=== PATIENT | female | born 1965 | race Caucasian/White ===

== ENCOUNTER 2022-02-20 14:34 | Inpatient (IN) ==
[2022-02-20] MEDS ORDERED: Ringers Solution, Lactated 500 ML IVC ONE (15:08)
[2022-02-20] MEDS ORDERED: Ondansetron 4 MG/2 ML VIAL IVP PRN (15:11)
[2022-02-20] MEDS ORDERED: Iopamidol - 370 500 ML MLS IVP ONE (15:13)
[2022-02-20] MEDS ORDERED: *HR* HYDROcodone/Acet 5/325 mg TABLET PO PRN (15:14)
[2022-02-20] MEDS ORDERED: Ringers Solution, Lactated 1,000 ML ONE (16:23)
[2022-02-20 16:40] LABS: Hematocrit 40.3 % (35.3-44.9); Hemoglobin 13.6 g/dL (11.5-15.4); Mean Corpuscular HGB Conc 33.7 g/dL (31.6-35.5); Mean Corpuscular Hemoglobin 32.3 pg (28.0-33.3); Mean Corpuscular Volume 95.7 fL (83.0-100.0); Platelet Count 233 K/mcL (140-400); Red Blood Count 4.21 M/mcL (3.82-4.97); Red Cell Distribution Width 14.3 % (11.5-14.5)
[2022-02-20 17:00] LABS: BUN/Creatinine Ratio 21 (6-26); Blood Urea Nitrogen 16 mg/dL (6-20); Calcium 9.6 mg/dL (8.6-10.3); Carbon Dioxide 23 mEq/L (23-29); Chloride 101 mEq/L (98-107); Glucose 178 mg/dL (70-105); Monocytes # 0.2 K/mcL (0.0-1.3); Neutrophils # 7.8 K/mcL (1.6-8.9); Osmolality,Calculated 284 (280-300); Sodium 134 mEq/L (136-145); eGFR For African Americans > 60 (> 60); eGFR For Non-African Americans > 60 (> 60)
[2022-02-20] MEDS: modafiniL 100 MG TABLET PO SCH (20:01)
[2022-02-20] MEDS: Ketorolac 30 MG/ML VIAL IVP SCH (20:01)
[2022-02-20] MEDS ORDERED: D5% in Water 1,000 ML IVC PRN (21:09)
[2022-02-20] MEDS ORDERED: Dextrose Gel 15 GM/37.5 ML TUBE PO PRN ×2 (21:09)
[2022-02-20] MEDS ORDERED: *HR* Dextrose 50 % in Water (Syg) 50 ML SYRINGE IVP PRN (21:09)
[2022-02-20] MEDS ORDERED: Methyl Salicylate/Menthol 85 APPL/85 GM TUBE TP PRN (21:37)
[2022-02-20] MEDS ORDERED: Piperacillin/Tazobactam 3.375 GM in 0.9 % Sodium Chloride Mini Bag 100 ML IVPB SCH (22:00)
[2022-02-20] MEDS: Insulin LISPRO 300 UNITS/3 ML VIAL SUBQ SCH (22:42)
[2022-02-20] MEDS ORDERED: Ringers Solution, Lactated 0 ML ONE (22:47)
[2022-02-21] MEDS: Ketorolac 30 MG/ML VIAL IVP SCH ×3 (02:40→20:57)
[2022-02-21] MEDS: *HR* HYDROcodone/Acet 5/325 mg TABLET PO PRN ×3 (03:15→17:55)
[2022-02-21 04:54] LABS: Hematocrit 34.8 % (35.3-44.9); Mean Corpuscular HGB Conc 33.6 g/dL (31.6-35.5); Mean Corpuscular Hemoglobin 31.9 pg (28.0-33.3); Mean Corpuscular Volume 94.8 fL (83.0-100.0); Mean Platelet Volume 10.1 fL (9.4-12.4); Monocytes # 0.4 K/mcL (0.0-1.3); Platelet Count 204 K/mcL (140-400); Red Blood Count 3.67 M/mcL (3.82-4.97); Red Cell Distribution Width 14.1 % (11.5-14.5); White Blood Count 10.2 K/mcL (4.3-11.1)
[2022-02-21 05:24] LABS: Hemoglobin 11.7 g/dL (11.5-15.4)
[2022-02-21 06:20] LABS: Neutrophils # 8.8 K/mcL (1.6-8.9); Platelet Estimate Normal (Normal)
[2022-02-21] MEDS ORDERED: Simethicone 80 MG TAB.CHEW PO PRN (07:22)
[2022-02-21] MEDS: modafiniL 100 MG TABLET PO SCH ×2 (07:38→20:58)
[2022-02-21] MEDS: Loratadine 10 MG TABLET PO SCH (07:49)
[2022-02-21] MEDS: lisinopriL 20 MG TABLET PO SCH (07:49)
[2022-02-21] MEDS: amLODIPine 5 MG TABLET PO SCH (07:49)
[2022-02-21] MEDS: Metoprolol XL (24 HR) Succ 25 MG TAB.ER.24H PO SCH (07:50)
[2022-02-21] MEDS: Aspirin Enteric Coated 81 MG Tablet PO SCH (07:50)
[2022-02-21] MEDS: BuPROPion XL (24 HR) 150 MG TABLET PO SCH (07:50)
[2022-02-21] MEDS: hydroCHLOROthiazide 25 MG TABLET PO SCH (07:50)
[2022-02-21] MEDS: Piperacillin/Tazobactam 3.375 GM in 0.9 % Sodium Chloride Mini Bag 100 ML IVPB SCH ×2 (07:50→17:55)
[2022-02-21] MEDS: Insulin LISPRO 300 UNITS/3 ML VIAL SUBQ SCH ×4 (08:04→21:02)
[2022-02-21] MEDS: *HR* HYDROmorphone (PF) 1 MG/ML SYRINGE IVP PRN ×3 (08:55→21:49)
[2022-02-21] MEDS ORDERED: NON-FORMULARY MEDICATION 1 EACH EACH (Ipratropium Bromide 15 ML Spray) NS SCH (09:00)
[2022-02-21] MEDS: Tiotropium 10 INH DOSE IH SCH (13:24)
[2022-02-21] MEDS: Budesonide/Formoterol 160/4.5 1 PUFF INH IH SCH ×2 (13:24→20:59)
[2022-02-21] MEDS: Ringers Solution, Lactated 1,000 ML IVC SCH (20:54)
[2022-02-22] MEDS: *HR* HYDROcodone/Acet 5/325 mg TABLET PO PRN ×2 (02:23→10:55)
[2022-02-22] MEDS: Ringers Solution, Lactated 1,000 ML IVC SCH (04:53)
[2022-02-22] MEDS: Ketorolac 30 MG/ML VIAL IVP SCH ×2 (04:53→20:07)
[2022-02-22 05:26] LABS: Basophils % 0.2 %; Eosinophils # 0.3 K/mcL (0.0-0.6); Eosinophils % 2.2 %; Hematocrit 36.3 % (35.3-44.9); Hemoglobin 12.3 g/dL (11.5-15.4); Immature Granulocytes % 1.1 % (0-4); Lymphocytes # 0.9 K/mcL (0.6-4.6); Lymphocytes % 7.4 %; Mean Corpuscular HGB Conc 33.9 g/dL (31.6-35.5); Mean Corpuscular Hemoglobin 31.9 pg (28.0-33.3); Mean Corpuscular Volume 94.3 fL (83.0-100.0); Mean Platelet Volume 10.3 fL (9.4-12.4); Monocytes # 0.5 K/mcL (0.0-1.3); Monocytes % 4.7 %; Neutrophils # 9.8 K/mcL (1.6-8.9); Platelet Count 238 K/mcL (140-400); Red Blood Count 3.85 M/mcL (3.82-4.97); Segmented Neutrophils % 84.4 %; White Blood Count 11.6 K/mcL (4.3-11.1)
[2022-02-22 05:43] LABS: BUN/Creatinine Ratio 25 (6-26); Blood Urea Nitrogen 17 mg/dL (6-20); Calcium 8.6 mg/dL (8.6-10.3); Carbon Dioxide 20 mEq/L (23-29); Chloride 100 mEq/L (98-107); Glucose 163 mg/dL (70-105); Osmolality,Calculated 279 (280-300); Potassium 3.6 mEq/L (3.5-5.1); Sodium 132 mEq/L (136-145); eGFR For African Americans > 60 (> 60); eGFR For Non-African Americans > 60 (> 60)
[2022-02-22] MEDS: Piperacillin/Tazobactam 3.375 GM in 0.9 % Sodium Chloride Mini Bag 100 ML IVPB SCH ×2 (05:50→14:50)
[2022-02-22] MEDS: Tiotropium 10 INH DOSE IH SCH (07:48)
[2022-02-22] MEDS: Budesonide/Formoterol 160/4.5 1 PUFF INH IH SCH (07:49)
[2022-02-22] MEDS: BuPROPion XL (24 HR) 150 MG TABLET PO SCH (08:16)
[2022-02-22] MEDS: amLODIPine 5 MG TABLET PO SCH (08:17)
[2022-02-22] MEDS: hydroCHLOROthiazide 25 MG TABLET PO SCH (08:18)
[2022-02-22] MEDS: modafiniL 100 MG TABLET PO SCH (08:18)
[2022-02-22] MEDS: Aspirin Enteric Coated 81 MG Tablet PO SCH (08:23)
[2022-02-22] MEDS: lisinopriL 20 MG TABLET PO SCH (08:24)
[2022-02-22] MEDS: Loratadine 10 MG TABLET PO SCH (08:24)
[2022-02-22] MEDS: Metoprolol XL (24 HR) Succ 25 MG TAB.ER.24H PO SCH (08:24)
[2022-02-22] MEDS ORDERED: 0.9 % Sodium Chloride 500 ML ONE (08:51)
[2022-02-22] MEDS ORDERED: *HR* FentaNYL (PF) 100 MCG/2 ML VIAL IVP ONE (08:55)
[2022-02-22] MEDS ORDERED: *HR* FentaNYL (PF) 100 MCG/2 ML VIAL ONE (12:35)
[2022-02-22] MEDS ORDERED: Lidocaine -MPF 2% 5 ML VIAL ONE ×2 (12:35→14:00)
[2022-02-22] MEDS ORDERED: *HR* Rocuronium Bromide 50 MG/5 ML VIAL ONE ×2 (12:35→14:55)
[2022-02-22] MEDS ORDERED: *HR* Succinylcholine 200 MG/10 ML VIAL IVP ONE (12:35)
[2022-02-22] MEDS ORDERED: *HR* Propofol 200 MG/20 ML VIAL IVP ONE (12:35)
[2022-02-22] MEDS ORDERED: Ondansetron 4 MG/2 ML VIAL ONE (12:35)
[2022-02-22] MEDS ORDERED: *HR* HYDROmorphone 2 MG TABLET PO PRN (13:07)
[2022-02-22] MEDS ORDERED: Ketorolac 30 MG/ML VIAL IVP PRN (13:07)
[2022-02-22] MEDS ORDERED: *HR* Labetalol 20 MG/4 ML SYRINGE IVP PRN (13:07)
[2022-02-22] MEDS ORDERED: Ondansetron 4 MG/2 ML VIAL IVP PRN (13:07)
[2022-02-22] MEDS ORDERED: *HR* OxyCODONE Immed Rel 5 MG TABLET PO PRN (13:07)
[2022-02-22] MEDS ORDERED: Acetaminophen IV 1,000 MG/100 ML BAG IVPB ONE (13:07)
[2022-02-22] MEDS ORDERED: Famotidine 20 MG/2 ML VIAL IVP ONE (13:07)
[2022-02-22] MEDS ORDERED: *HR* Magnesium Sulfate 1 GM/2 ML VIAL ONE (13:59)
[2022-02-22] MEDS ORDERED: Ketamine HCL *QUVA* 50mg (1mL) SYRINGE ONE (14:02)
[2022-02-22] MEDS ORDERED: Albumin Human 5% 12.5 GM/250 ML IV.SOLN ONE ×2 (16:01→16:04)
[2022-02-22] MEDS: *HR* HYDROmorphone (PF) 1 MG/ML SYRINGE IVP PRN ×3 (16:49→17:41)
[2022-02-22] MEDS ORDERED: *HR* HYDROmorphone (PF) 1 MG/ML SYRINGE IVP STA (17:08)
[2022-02-22] MEDS ORDERED: *HR* Midazolam HCl 2 MG/2 ML VIAL IVP PRN (17:10)
[2022-02-22] MEDS ORDERED: D5% in Water 1,000 ML IVC PRN (18:24)
[2022-02-22] MEDS ORDERED: Dextrose Gel 15 GM/37.5 ML TUBE PO PRN ×2 (18:24)
[2022-02-22] MEDS ORDERED: *HR* Dextrose 50 % in Water (Syg) 50 ML SYRINGE IVP PRN (18:24)
[2022-02-22] MEDS: *HR* Metoprolol 5 MG/5 ML VIAL IVP PRN (20:03)
[2022-02-22] MEDS: Acetaminophen IV 1,000 MG/100 ML BAG IVPB SCH (20:04)
[2022-02-22] MEDS: Fluconazole 400 MG/200 ML 400 MG/200 ML BAG IVPB SCH (20:05)
[2022-02-22] MEDS: 0.9 % Sodium Chloride 1,000 ML IVC SCH (20:05)
[2022-02-22 22:10] LABS: BUN/Creatinine Ratio 21 (6-26); Blood Urea Nitrogen 15 mg/dL (6-20); Calcium 7.8 mg/dL (8.6-10.3); Carbon Dioxide 13 mEq/L (23-29); Chloride 104 mEq/L (98-107); Glucose 200 mg/dL (70-105); Magnesium 2.4 mg/dL (1.6-2.6); Osmolality,Calculated 278 (280-300); Potassium 4.2 mEq/L (3.5-5.1); Sodium 131 mEq/L (136-145); eGFR For African Americans > 60 (> 60); eGFR For Non-African Americans > 60 (> 60)
[2022-02-22] MEDS ORDERED: 0.9 % Sodium Chloride 250 ML ONE (22:13)
[2022-02-22] MEDS: *HR* HYDROmorphone PCA *PREMADE* 20 MG/1MG/ML (20mL) PCA VIAL IVC PRN (22:17)
[2022-02-22 23:14] LABS: Basophils % 0.3 %; Eosinophils % 0.1 %; Hematocrit 34.3 % (35.3-44.9); Hemoglobin 11.3 g/dL (11.5-15.4); Lymphocytes # 0.6 K/mcL (0.6-4.6); Mean Corpuscular HGB Conc 32.9 g/dL (31.6-35.5); Mean Corpuscular Hemoglobin 31.7 pg (28.0-33.3); Mean Corpuscular Volume 96.3 fL (83.0-100.0); Mean Platelet Volume 10.3 fL (9.4-12.4); Monocytes # 0.6 K/mcL (0.0-1.3); Monocytes % 5.3 %; Platelet Count 239 K/mcL (140-400); Red Blood Count 3.56 M/mcL (3.82-4.97); Red Cell Distribution Width 14.2 % (11.5-14.5); Segmented Neutrophils % 87.3 %; White Blood Count 10.5 K/mcL (4.3-11.1)
[2022-02-22 23:17] LABS: Neutrophils # 9.2 K/mcL (1.6-8.9)
[2022-02-22] MEDS: Insulin LISPRO 300 UNITS/3 ML VIAL SUBQ SCH (23:42)
[2022-02-23 00:02] LABS: Platelet Estimate Normal (Normal)
[2022-02-23] MEDS: Insulin LISPRO 300 UNITS/3 ML VIAL SUBQ SCH ×5 (00:19→22:29)
[2022-02-23] MEDS: Piperacillin/Tazobactam 3.375 GM in 0.9 % Sodium Chloride Mini Bag 100 ML IVPB SCH ×3 (00:19→17:08)
[2022-02-23] MEDS: Acetaminophen IV 1,000 MG/100 ML BAG IVPB SCH ×4 (00:19→20:18)
[2022-02-23 05:01] LABS: BUN/Creatinine Ratio 28 (6-26); Blood Urea Nitrogen 18 mg/dL (6-20); Calcium 7.7 mg/dL (8.6-10.3); Carbon Dioxide 18 mEq/L (23-29); Chloride 106 mEq/L (98-107); Glucose 190 mg/dL (70-105); Magnesium 2.3 mg/dL (1.6-2.6); Osmolality,Calculated 287 (280-300); Phosphorous 2.7 mg/dL (2.7-4.5); Potassium 3.8 mEq/L (3.5-5.1); Sodium 135 mEq/L (136-145); eGFR For African Americans > 60 (> 60); eGFR For Non-African Americans > 60 (> 60)
[2022-02-23 05:21] LABS: Basophils % 0.3 %; Eosinophils % 0.1 %; Hematocrit 32.1 % (35.3-44.9); Hemoglobin 10.7 g/dL (11.5-15.4); Immature Granulocytes % 1.2 % (0-4); Lymphocytes # 0.6 K/mcL (0.6-4.6); Lymphocytes % 5.6 %; Mean Corpuscular HGB Conc 33.3 g/dL (31.6-35.5); Mean Corpuscular Volume 96.1 fL (83.0-100.0); Monocytes # 0.6 K/mcL (0.0-1.3); Monocytes % 5.3 %; Platelet Count 239 K/mcL (140-400); Red Blood Count 3.34 M/mcL (3.82-4.97); Red Cell Distribution Width 14.3 % (11.5-14.5); Segmented Neutrophils % 87.5 %; White Blood Count 10.8 K/mcL (4.3-11.1)
[2022-02-23 05:28] LABS: Neutrophils # 9.5 K/mcL (1.6-8.9)
[2022-02-23] MEDS ORDERED: Insulin LISPRO 300 UNITS/3 ML VIAL SUBQ SCH (07:30)
[2022-02-23] MEDS ORDERED: 0.9 % Sodium Chloride 1,000 ML ONE (11:15)
[2022-02-23] MEDS: 0.9 % Sodium Chloride 1,000 ML IVC SCH (11:41)
[2022-02-23] MEDS: Fluconazole 400 MG/200 ML 400 MG/200 ML BAG IVPB SCH (17:13)
[2022-02-24] MEDS: Acetaminophen IV 1,000 MG/100 ML BAG IVPB SCH ×4 (00:17→19:59)
[2022-02-24] MEDS: Piperacillin/Tazobactam 3.375 GM in 0.9 % Sodium Chloride Mini Bag 100 ML IVPB SCH ×3 (00:18→17:21)
[2022-02-24] MEDS: *HR* Metoprolol 5 MG/5 ML VIAL IVP PRN (04:35)
[2022-02-24] MEDS: Insulin LISPRO 300 UNITS/3 ML VIAL SUBQ SCH ×5 (07:28→23:50)
[2022-02-24 10:33] LABS: Basophils # 0.1 K/mcL (0.0-0.2); Basophils % 0.4 %; Eosinophils # 0.5 K/mcL (0.0-0.6); Eosinophils % 4.4 %; Hematocrit 32.2 % (35.3-44.9); Hemoglobin 10.6 g/dL (11.5-15.4); Immature Granulocytes % 4.4 % (0-4); Lymphocytes # 1.3 K/mcL (0.6-4.6); Lymphocytes % 10.9 %; Mean Corpuscular HGB Conc 32.9 g/dL (31.6-35.5); Mean Corpuscular Hemoglobin 31.7 pg (28.0-33.3); Mean Corpuscular Volume 96.4 fL (83.0-100.0); Mean Platelet Volume 10.5 fL (9.4-12.4); Monocytes # 0.9 K/mcL (0.0-1.3); Monocytes % 7.4 %; Neutrophils # 8.7 K/mcL (1.6-8.9); Platelet Count 258 K/mcL (140-400); Red Blood Count 3.34 M/mcL (3.82-4.97); Red Cell Distribution Width 14.8 % (11.5-14.5); Segmented Neutrophils % 72.5 %
[2022-02-24 10:53] LABS: BUN/Creatinine Ratio 42 (6-26); Blood Urea Nitrogen 22 mg/dL (6-20); Calcium 7.8 mg/dL (8.6-10.3); Carbon Dioxide 22 mEq/L (23-29); Chloride 107 mEq/L (98-107); Glucose 132 mg/dL (70-105); Magnesium 2.5 mg/dL (1.6-2.6); Osmolality,Calculated 291 (280-300); Phosphorous 2.4 mg/dL (2.7-4.5); Potassium 3.4 mEq/L (3.5-5.1); Sodium 138 mEq/L (136-145); eGFR For African Americans > 60 (> 60); eGFR For Non-African Americans > 60 (> 60)
[2022-02-24] MEDS ORDERED: Potassium Phosphate 44 MEQ in 0.9 % Sodium Chloride 250 ML IVPB ONE (13:43)
[2022-02-24] MEDS: D5% in 0.2% NACL w KCl 1,000 ML IVC SCH (14:35)
[2022-02-24] MEDS: Fluconazole 400 MG/200 ML 400 MG/200 ML BAG IVPB SCH (17:22)
[2022-02-24] MEDS: *HR* HYDROmorphone PCA *PREMADE* 20 MG/1MG/ML (20mL) PCA VIAL IVC PRN (19:25)
[2022-02-25] MEDS: *HR* Metoprolol 5 MG/5 ML VIAL IVP PRN (00:18)
[2022-02-25] MEDS: Piperacillin/Tazobactam 3.375 GM in 0.9 % Sodium Chloride Mini Bag 100 ML IVPB SCH ×3 (00:19→17:18)
[2022-02-25] MEDS: Insulin LISPRO 300 UNITS/3 ML VIAL SUBQ SCH ×5 (00:26→21:42)
[2022-02-25] MEDS ORDERED: Iopamidol - 370 500 ML MLS IVP ONE (03:50)
[2022-02-25 04:53] LABS: Basophils # 0.1 K/mcL (0.0-0.2); Basophils % 0.7 %; Eosinophils # 0.6 K/mcL (0.0-0.6); Eosinophils % 5.2 %; Hematocrit 32.1 % (35.3-44.9); Hemoglobin 10.5 g/dL (11.5-15.4); Immature Granulocytes % 6.5 % (0-4); Lymphocytes # 1.5 K/mcL (0.6-4.6); Lymphocytes % 13.1 %; Mean Corpuscular HGB Conc 32.7 g/dL (31.6-35.5); Mean Corpuscular Hemoglobin 31.6 pg (28.0-33.3); Mean Corpuscular Volume 96.7 fL (83.0-100.0); Monocytes # 0.6 K/mcL (0.0-1.3); Monocytes % 5.3 %; Platelet Count 291 K/mcL (140-400); Red Blood Count 3.32 M/mcL (3.82-4.97); Segmented Neutrophils % 69.2 %; White Blood Count 11.5 K/mcL (4.3-11.1)
[2022-02-25] MEDS ORDERED: Vancomycin 2,000 MG/520 ML IV.SOLN IVPB ONE (05:00)
[2022-02-25 05:03] LABS: BUN/Creatinine Ratio 36 (6-26); Blood Urea Nitrogen 16 mg/dL (6-20); Calcium 7.4 mg/dL (8.6-10.3); Carbon Dioxide 20 mEq/L (23-29); Chloride 106 mEq/L (98-107); Glucose 151 mg/dL (70-105); Osmolality,Calculated 284 (280-300); Potassium 3.6 mEq/L (3.5-5.1); Sodium 135 mEq/L (136-145); eGFR For African Americans > 60 (> 60); eGFR For Non-African Americans > 60 (> 60)
[2022-02-25] MEDS ORDERED: Acetaminophen IV 1,000 MG/100 ML BAG IVPB PRN (05:07)
[2022-02-25] MEDS ORDERED: Ringers Solution, Lactated 250 ML IVC ONE (05:15)
[2022-02-25] MEDS: D5% in 0.2% NACL w KCl 1,000 ML IVC SCH (10:14)
[2022-02-25] MEDS ORDERED: Lidocaine -MPF 1% 5 ML AMPUL INFILT ONE (10:16)
[2022-02-25] MEDS: Acetaminophen IV 1,000 MG/100 ML BAG IVPB SCH (10:24)
[2022-02-25] MEDS: 0.9 % Sodium Chloride 1,000 ML IVC SCH ×2 (10:47→19:41)
[2022-02-25 11:36] LABS: Bacteria,Urine Few per hpf (None-Few); Bilirubin,Urine Negative (Negative); Blood,Urine Small (Negative); Clarity,Urine Clear (Clear); Color,Urine Light-Yellow (Yellow); Glucose,Urine (UA) 200 mg/dL (Normal); Ketones,Urine >150 mg/dL (Negative); Leukocyte Esterase,Urine Negative (Negative); Mucus,Urine Few per lpf (None-Few); Nitrite,Urine Negative (Negative); Protein,Urine 30 mg/dL (Neg-Trace); RBC,Urine 15-30 per hpf (0-3); Specific Gravity,Urine > 1.030 (1.010-1.025); Squamous Epithelial Cell,Urine Few per hpf (None-Few); Uric Acid Crystals,Urine Present per hpf; Urobilinogen,Urine Normal (Normal)
[2022-02-25 11:43] LABS: Alanine Aminotransferase 15 Units/L (7-52); Albumin 2.8 g/dL (3.5-5.7); Alkaline Phosphatase 59 Units/L (34-104); Aspartate Amino Transferase 22 Units/L (13-39); Bilirubin,Direct 0.1 mg/dL (0.0-0.2); Bilirubin,Indirect 0.3 mg/dL (0.0-1.0); Bilirubin,Total 0.4 mg/dL (0.3-1.0); Globulin 2.8 g/dL (2.4-3.5); Magnesium 2.1 mg/dL (1.6-2.6); Total Protein 5.6 g/dL (6.4-8.9)
[2022-02-25 11:44] LABS: Phosphorous 2.5 mg/dL (2.7-4.5)
[2022-02-25 11:55] LABS: Thyroid Stimulating Hormone 5.766 mcIU/mL (0.340-5.600)
[2022-02-25] MEDS: Ketorolac 30 MG/ML VIAL IVP SCH ×2 (12:19→18:36)
[2022-02-25] MEDS ORDERED: D10% in Water 500 ML IVC PRN (12:42)
[2022-02-25] MEDS: *HR* HYDROmorphone PCA *PREMADE* 20 MG/1MG/ML (20mL) PCA VIAL IVC PRN (15:02)
[2022-02-25] MEDS ORDERED: Clinimix E 5%-15% SOLUTION 2,000 ML, Amino Acids 10% 0 ML with MVI, adult with vitami... IVC SCH (17:00)
[2022-02-25] MEDS: Vancomycin 1,250 MG/262.5 ML IV.SOLN IVPB SCH (17:18)
[2022-02-25] MEDS ORDERED: Calcium Gluconate 1gm/50mL 1 GM/50 ML BAG IVPB SCH (18:30)
[2022-02-25] MEDS: Fluconazole 400 MG/200 ML 400 MG/200 ML BAG IVPB SCH (18:46)
[2022-02-26] MEDS: Piperacillin/Tazobactam 3.375 GM in 0.9 % Sodium Chloride Mini Bag 100 ML IVPB SCH ×3 (00:19→19:29)
[2022-02-26] MEDS: Ketorolac 30 MG/ML VIAL IVP SCH ×5 (00:20→23:55)
[2022-02-26] MEDS: Insulin LISPRO 300 UNITS/3 ML VIAL SUBQ SCH ×5 (00:45→22:09)
[2022-02-26 05:04] LABS: Hematocrit 30.8 % (35.3-44.9); Hemoglobin 9.9 g/dL (11.5-15.4); Mean Corpuscular HGB Conc 32.1 g/dL (31.6-35.5); Mean Corpuscular Hemoglobin 31.2 pg (28.0-33.3); Mean Corpuscular Volume 97.2 fL (83.0-100.0); Mean Platelet Volume 10.1 fL (9.4-12.4); Platelet Count 317 K/mcL (140-400); Red Blood Count 3.17 M/mcL (3.82-4.97); Red Cell Distribution Width 14.9 % (11.5-14.5); White Blood Count 13.6 K/mcL (4.3-11.1)
[2022-02-26 05:25] LABS: Alanine Aminotransferase 14 Units/L (7-52); Albumin 2.7 g/dL (3.5-5.7); Alkaline Phosphatase 64 Units/L (34-104); Aspartate Amino Transferase 16 Units/L (13-39); BUN/Creatinine Ratio 33 (6-26); Bilirubin,Total 0.4 mg/dL (0.3-1.0); Blood Urea Nitrogen 16 mg/dL (6-20); Calcium 7.3 mg/dL (8.6-10.3); Carbon Dioxide 20 mEq/L (23-29); Chloride 108 mEq/L (98-107); Globulin 2.7 g/dL (2.4-3.5); Glucose 119 mg/dL (70-105); Magnesium 2.1 mg/dL (1.6-2.6); Osmolality,Calculated 288 (280-300); Phosphorous 2.3 mg/dL (2.7-4.5); Potassium 3.9 mEq/L (3.5-5.1); Sodium 138 mEq/L (136-145); Total Protein 5.4 g/dL (6.4-8.9); Triglycerides 149 mg/dL (< 150); eGFR For African Americans > 60 (> 60); eGFR For Non-African Americans > 60 (> 60)
[2022-02-26] MEDS: 0.9 % Sodium Chloride 1,000 ML IVC SCH ×2 (05:46→19:28)
[2022-02-26] MEDS: Vancomycin 1,250 MG/262.5 ML IV.SOLN IVPB SCH (05:47)
[2022-02-26] MEDS ORDERED: Calcium Gluconate 1gm/50mL 1 GM/50 ML BAG IVPB ONE (08:40)
[2022-02-26] MEDS: amLODIPine 5 MG TABLET PO SCH (12:35)
[2022-02-26] MEDS: Metoprolol XL (24 HR) Succ 25 MG TAB.ER.24H PO SCH (12:35)
[2022-02-26] MEDS: *HR* HYDROmorphone PCA *PREMADE* 20 MG/1MG/ML (20mL) PCA VIAL IVC PRN (12:45)
[2022-02-26] MEDS: Fluconazole 400 MG/200 ML 400 MG/200 ML BAG IVPB SCH (19:33)
[2022-02-26] MEDS ORDERED: Vancomycin 1,500 MG/265 ML IV.SOLN IVPB SCH (22:00)
[2022-02-26] MEDS: Ondansetron 4 MG/2 ML VIAL IVP PRN (22:05)
[2022-02-27] MEDS: Insulin LISPRO 300 UNITS/3 ML VIAL SUBQ SCH ×5 (00:56→19:53)
[2022-02-27] MEDS: Piperacillin/Tazobactam 3.375 GM in 0.9 % Sodium Chloride Mini Bag 100 ML IVPB SCH ×3 (03:33→19:52)
[2022-02-27 04:35] LABS: Hematocrit 28.3 % (35.3-44.9); Hemoglobin 9.2 g/dL (11.5-15.4); Mean Corpuscular HGB Conc 32.5 g/dL (31.6-35.5); Mean Corpuscular Hemoglobin 31.4 pg (28.0-33.3); Mean Corpuscular Volume 96.6 fL (83.0-100.0); Mean Platelet Volume 10.3 fL (9.4-12.4); Platelet Count 336 K/mcL (140-400); Red Blood Count 2.93 M/mcL (3.82-4.97); Red Cell Distribution Width 14.8 % (11.5-14.5); White Blood Count 14.5 K/mcL (4.3-11.1)
[2022-02-27 04:56] LABS: Neutrophils # 11.6 K/mcL (1.6-8.9); Platelet Estimate Normal (Normal)
[2022-02-27 05:03] LABS: BUN/Creatinine Ratio 31 (6-26); Blood Urea Nitrogen 8 mg/dL (6-20); Calcium 5.2 mg/dL (8.6-10.3); Carbon Dioxide 15 mEq/L (23-29); Chloride 117 mEq/L (98-107); Glucose 98 mg/dL (70-105); Osmolality,Calculated 286 (280-300); Potassium 2.7 mEq/L (3.5-5.1); Sodium 139 mEq/L (136-145)
[2022-02-27] MEDS: 0.9 % Sodium Chloride 1,000 ML IVC SCH ×2 (05:11→14:56)
[2022-02-27] MEDS: Calcium Gluconate 1gm/50mL 1 GM/50 ML BAG IVPB SCH ×2 (05:34→06:03)
[2022-02-27] MEDS: Ketorolac 30 MG/ML VIAL IVP SCH ×3 (06:02→18:45)
[2022-02-27] MEDS: amLODIPine 5 MG TABLET PO SCH (08:33)
[2022-02-27] MEDS: Metoprolol XL (24 HR) Succ 25 MG TAB.ER.24H PO SCH (08:33)
[2022-02-27 10:52] LABS: BUN/Creatinine Ratio 20 (6-26); Blood Urea Nitrogen 9 mg/dL (6-20); Calcium 7.6 mg/dL (8.6-10.3); Carbon Dioxide 21 mEq/L (23-29); Chloride 108 mEq/L (98-107); Glucose 113 mg/dL (70-105); Magnesium 1.8 mg/dL (1.6-2.6); Osmolality,Calculated 281 (280-300); Potassium 3.8 mEq/L (3.5-5.1); Sodium 136 mEq/L (136-145)
[2022-02-27] MEDS: Vancomycin 1,750 MG/517.5 ML IV.SOLN IVPB SCH ×2 (11:03→21:11)
[2022-02-27] MEDS: *HR* OxyCODONE Immed Rel 5 MG TABLET PO PRN ×3 (11:11→21:10)
[2022-02-27] MEDS ORDERED: Magnesium Sulfate 1 GM/102 ML PIGGYBACK IVPB ONE (14:04)
[2022-02-27] MEDS ORDERED: Calcium Gluconate 1gm/50mL 1 GM/50 ML BAG IVPB ONE (14:04)
[2022-02-27] MEDS: Fluconazole 400 MG/200 ML 400 MG/200 ML BAG IVPB SCH (18:46)
[2022-02-27] MEDS: *HR* Heparin 5,000 UNIT/ML VIAL SQ SCH (21:11)
[2022-02-28] MEDS: 0.9 % Sodium Chloride 1,000 ML IVC SCH ×2 (01:42→08:54)
[2022-02-28] MEDS: Ketorolac 30 MG/ML VIAL IVP SCH ×5 (01:43→23:09)
[2022-02-28] MEDS: Insulin LISPRO 300 UNITS/3 ML VIAL SUBQ SCH ×5 (01:46→21:11)
[2022-02-28] MEDS: *HR* OxyCODONE Immed Rel 5 MG TABLET PO PRN ×4 (01:46→17:10)
[2022-02-28] MEDS ORDERED: Albuterol 2.5 MG/3 ML NEBULIZER IH PRN (02:11)
[2022-02-28] MEDS: Piperacillin/Tazobactam 3.375 GM in 0.9 % Sodium Chloride Mini Bag 100 ML IVPB SCH ×3 (04:55→21:09)
[2022-02-28] MEDS: *HR* Heparin 5,000 UNIT/ML VIAL SQ SCH ×3 (06:01→21:09)
[2022-02-28] MEDS ORDERED: Iopamidol - 370 500 ML MLS IVP ONE (08:52)
[2022-02-28] MEDS: amLODIPine 5 MG TABLET PO SCH (08:54)
[2022-02-28] MEDS: lisinopriL 20 MG TABLET PO SCH (08:55)
[2022-02-28] MEDS ORDERED: Metoprolol XL (24 HR) Succ 25 MG TAB.ER.24H PO SCH (09:00)
[2022-02-28 09:36] LABS: Basophils % 0.3 %; Eosinophils # 0.2 K/mcL (0.0-0.6); Hematocrit 26.9 % (35.3-44.9); Hemoglobin 8.8 g/dL (11.5-15.4); Immature Granulocytes % 4.8 % (0-4); Lymphocytes # 1.3 K/mcL (0.6-4.6); Lymphocytes % 11.3 %; Mean Corpuscular HGB Conc 32.7 g/dL (31.6-35.5); Mean Corpuscular Hemoglobin 31.1 pg (28.0-33.3); Mean Corpuscular Volume 95.1 fL (83.0-100.0); Mean Platelet Volume 10.4 fL (9.4-12.4); Monocytes # 0.5 K/mcL (0.0-1.3); Monocytes % 4.2 %; Neutrophils # 9.1 K/mcL (1.6-8.9); Platelet Count 355 K/mcL (140-400); Red Blood Count 2.83 M/mcL (3.82-4.97); Red Cell Distribution Width 14.7 % (11.5-14.5); Segmented Neutrophils % 77.4 %; White Blood Count 11.8 K/mcL (4.3-11.1)
[2022-02-28 09:50] LABS: BUN/Creatinine Ratio 13 (6-26); Blood Urea Nitrogen 10 mg/dL (6-20); Calcium 7.4 mg/dL (8.6-10.3); Carbon Dioxide 21 mEq/L (23-29); Chloride 109 mEq/L (98-107); Glucose 129 mg/dL (70-105); Osmolality,Calculated 287 (280-300); Potassium 3.3 mEq/L (3.5-5.1); Sodium 138 mEq/L (136-145)
[2022-02-28] MEDS: Vancomycin 1,750 MG/517.5 ML IV.SOLN IVPB SCH ×2 (11:01→23:10)
[2022-02-28] MEDS: Budesonide/Formoterol 80/4.5 1 PUFF INH IH SCH ×2 (12:51→20:31)
[2022-02-28] MEDS: Tiotropium 10 INH DOSE IH SCH (12:51)
[2022-02-28] MEDS ORDERED: Morphine Sulfate 2 MG/ML SYRINGE IVP PRN (14:17)
[2022-02-28] MEDS: Fluconazole 400 MG/200 ML 400 MG/200 ML BAG IVPB SCH (17:11)
[2022-03-01] MEDS: *HR* OxyCODONE Immed Rel 5 MG TABLET PO PRN ×4 (00:22→21:21)
[2022-03-01] MEDS: *HR* Labetalol 20 MG/4 ML SYRINGE IVP PRN (00:22)
[2022-03-01] MEDS: Piperacillin/Tazobactam 3.375 GM in 0.9 % Sodium Chloride Mini Bag 100 ML IVPB SCH ×3 (04:26→19:43)
[2022-03-01 05:28] LABS: Basophils % 0.3 %; Eosinophils # 0.2 K/mcL (0.0-0.6); Eosinophils % 2.4 %; Hematocrit 25.5 % (35.3-44.9); Hemoglobin 8.4 g/dL (11.5-15.4); Immature Granulocytes % 2.2 % (0-4); Lymphocytes # 1.3 K/mcL (0.6-4.6); Lymphocytes % 13.7 %; Mean Corpuscular HGB Conc 32.9 g/dL (31.6-35.5); Mean Corpuscular Hemoglobin 31.3 pg (28.0-33.3); Mean Corpuscular Volume 95.1 fL (83.0-100.0); Mean Platelet Volume 10.3 fL (9.4-12.4); Monocytes # 0.6 K/mcL (0.0-1.3); Monocytes % 5.9 %; Neutrophils # 7.4 K/mcL (1.6-8.9); Platelet Count 376 K/mcL (140-400); Red Blood Count 2.68 M/mcL (3.82-4.97); Red Cell Distribution Width 14.8 % (11.5-14.5); Segmented Neutrophils % 75.5 %; White Blood Count 9.8 K/mcL (4.3-11.1)
[2022-03-01 05:45] LABS: Calcium 7.9 mg/dL (8.6-10.3); Magnesium 1.8 mg/dL (1.6-2.6); Potassium 3.3 mEq/L (3.5-5.1)
[2022-03-01] MEDS: Ketorolac 30 MG/ML VIAL IVP SCH ×2 (06:52→12:14)
[2022-03-01] MEDS: *HR* Heparin 5,000 UNIT/ML VIAL SQ SCH ×3 (06:53→21:01)
[2022-03-01] MEDS: Budesonide/Formoterol 80/4.5 1 PUFF INH IH SCH ×2 (07:35→22:46)
[2022-03-01] MEDS: Tiotropium 10 INH DOSE IH SCH (07:35)
[2022-03-01] MEDS: Insulin LISPRO 300 UNITS/3 ML VIAL SUBQ SCH ×5 (08:46→21:18)
[2022-03-01] MEDS: amLODIPine 5 MG TABLET PO SCH (08:47)
[2022-03-01] MEDS: lisinopriL 20 MG TABLET PO SCH (08:47)
[2022-03-01] MEDS: carvediloL 6.25 MG TABLET PO SCH ×2 (08:48→17:38)
[2022-03-01] MEDS: BuPROPion XL (24 HR) 150 MG TABLET PO SCH (10:07)
[2022-03-01] MEDS: Vancomycin 1,750 MG/517.5 ML IV.SOLN IVPB SCH ×2 (10:07→21:11)
[2022-03-01] MEDS: Fluconazole 400 MG/200 ML 400 MG/200 ML BAG IVPB SCH (17:39)
[2022-03-02] MEDS: Piperacillin/Tazobactam 3.375 GM in 0.9 % Sodium Chloride Mini Bag 100 ML IVPB SCH ×3 (04:37→21:02)
[2022-03-02] MEDS: *HR* Heparin 5,000 UNIT/ML VIAL SQ SCH ×3 (05:47→20:58)
[2022-03-02] MEDS: *HR* OxyCODONE Immed Rel 5 MG TABLET PO PRN ×3 (06:48→20:57)
[2022-03-02] MEDS: Insulin LISPRO 300 UNITS/3 ML VIAL SUBQ SCH ×5 (08:16→22:40)
[2022-03-02] MEDS: lisinopriL 20 MG TABLET PO SCH (08:17)
[2022-03-02] MEDS: amLODIPine 5 MG TABLET PO SCH (08:17)
[2022-03-02] MEDS: Tiotropium 10 INH DOSE IH SCH (08:17)
[2022-03-02] MEDS: carvediloL 6.25 MG TABLET PO SCH ×2 (08:17→16:21)
[2022-03-02] MEDS: BuPROPion XL (24 HR) 150 MG TABLET PO SCH (08:17)
[2022-03-02] MEDS: Budesonide/Formoterol 80/4.5 1 PUFF INH IH SCH ×2 (08:18→20:28)
[2022-03-02 10:23] LABS: Basophils % 0.2 %; Eosinophils # 0.3 K/mcL (0.0-0.6); Eosinophils % 2.9 %; Hematocrit 25.8 % (35.3-44.9); Hemoglobin 8.4 g/dL (11.5-15.4); Immature Granulocytes % 1.1 % (0-4); Lymphocytes # 1.2 K/mcL (0.6-4.6); Lymphocytes % 13.3 %; Mean Corpuscular HGB Conc 32.6 g/dL (31.6-35.5); Mean Corpuscular Hemoglobin 31.2 pg (28.0-33.3); Mean Corpuscular Volume 95.9 fL (83.0-100.0); Mean Platelet Volume 10.4 fL (9.4-12.4); Monocytes # 0.5 K/mcL (0.0-1.3); Monocytes % 5.4 %; Neutrophils # 6.8 K/mcL (1.6-8.9); Platelet Count 439 K/mcL (140-400); Red Blood Count 2.69 M/mcL (3.82-4.97); Red Cell Distribution Width 14.6 % (11.5-14.5); Segmented Neutrophils % 77.1 %; White Blood Count 8.8 K/mcL (4.3-11.1)
[2022-03-02 10:43] LABS: Calcium 8.3 mg/dL (8.6-10.3); Potassium 3.4 mEq/L (3.5-5.1)
[2022-03-02] MEDS: Vancomycin 1,750 MG/517.5 ML IV.SOLN IVPB SCH (13:16)
[2022-03-02] MEDS ORDERED: Potassium Chloride Elixir 20 MEQ/15 ML UDC PO ONE (13:24)
[2022-03-02 17:19] LABS: Bilirubin,Urine Negative (Negative); Blood,Urine Small (Negative); Clarity,Urine Clear (Clear); Color,Urine Colorless (Yellow); Glucose,Urine (UA) Normal (Normal); Ketones,Urine Negative (Negative); Leukocyte Esterase,Urine Large (Negative); Nitrite,Urine Negative (Negative); PH,Urine 6.5 pH Units (5.0-8.0); Protein,Urine Negative (Neg-Trace); Specific Gravity,Urine 1.006 (1.010-1.025); Squamous Epithelial Cell,Urine Few per hpf (None-Few); Urobilinogen,Urine Normal (Normal)
[2022-03-02 17:49] LABS: Sodium, Urine 101.6 mEq/L
[2022-03-02] MEDS: *HR* Labetalol 20 MG/4 ML SYRINGE IVP PRN (21:00)
[2022-03-02] MEDS: Fluconazole 400 MG/200 ML 400 MG/200 ML BAG IVPB SCH (21:12)
[2022-03-02] MEDS: Pantoprazole 40 MG VIAL IVP SCH (21:13)
[2022-03-02] MEDS: *HR* LORazepam 2 MG/ML VIAL IVP PRN (22:39)
[2022-03-03 02:49] LABS: Hematocrit 25.7 % (35.3-44.9); Hemoglobin 8.5 g/dL (11.5-15.4); Mean Corpuscular HGB Conc 33.1 g/dL (31.6-35.5); Mean Corpuscular Hemoglobin 31.6 pg (28.0-33.3); Mean Corpuscular Volume 95.5 fL (83.0-100.0); Mean Platelet Volume 10.2 fL (9.4-12.4); Platelet Count 445 K/mcL (140-400); Red Blood Count 2.69 M/mcL (3.82-4.97); Red Cell Distribution Width 14.5 % (11.5-14.5)
[2022-03-03 03:10] LABS: Calcium 8.2 mg/dL (8.6-10.3); Magnesium 1.9 mg/dL (1.6-2.6); Potassium 3.9 mEq/L (3.5-5.1)
[2022-03-03] MEDS: *HR* Heparin 5,000 UNIT/ML VIAL SQ SCH ×3 (05:38→20:47)
[2022-03-03] MEDS: Piperacillin/Tazobactam 3.375 GM in 0.9 % Sodium Chloride Mini Bag 100 ML IVPB SCH ×3 (05:38→20:49)
[2022-03-03] MEDS ORDERED: Magnesium Sulfate 1 GM/102 ML PIGGYBACK IVPB ONE (06:27)
[2022-03-03] MEDS: Pantoprazole 40 MG VIAL IVP SCH (08:36)
[2022-03-03] MEDS: amLODIPine 5 MG TABLET PO SCH (08:36)
[2022-03-03] MEDS: carvediloL 6.25 MG TABLET PO SCH ×2 (08:36→17:42)
[2022-03-03] MEDS: Insulin LISPRO 300 UNITS/3 ML VIAL SUBQ SCH ×3 (08:37→17:41)
[2022-03-03] MEDS: BuPROPion XL (24 HR) 150 MG TABLET PO SCH (08:37)
[2022-03-03] MEDS: Tiotropium 10 INH DOSE IH SCH (10:56)
[2022-03-03] MEDS: Budesonide/Formoterol 80/4.5 1 PUFF INH IH SCH ×2 (10:56→22:21)
[2022-03-03] MEDS: *HR* OxyCODONE Immed Rel 5 MG TABLET PO PRN (20:48)
[2022-03-03] MEDS: Fluconazole 400 MG/200 ML 400 MG/200 ML BAG IVPB SCH (20:49)
[2022-03-04] MEDS: Insulin LISPRO 300 UNITS/3 ML VIAL SUBQ SCH ×7 (00:31→20:21)
[2022-03-04] MEDS: *HR* LORazepam 2 MG/ML VIAL IVP PRN (01:28)
[2022-03-04] MEDS: Piperacillin/Tazobactam 3.375 GM in 0.9 % Sodium Chloride Mini Bag 100 ML IVPB SCH (04:59)
[2022-03-04] MEDS: *HR* Heparin 5,000 UNIT/ML VIAL SQ SCH ×2 (05:01→14:42)
[2022-03-04] MEDS: Budesonide/Formoterol 80/4.5 1 PUFF INH IH SCH ×2 (07:24→20:01)
[2022-03-04] MEDS: Tiotropium 10 INH DOSE IH SCH (07:25)
[2022-03-04] MEDS: BuPROPion XL (24 HR) 150 MG TABLET PO SCH (07:59)
[2022-03-04] MEDS: amLODIPine 5 MG TABLET PO SCH (08:00)
[2022-03-04] MEDS: carvediloL 6.25 MG TABLET PO SCH ×2 (08:00→16:51)
[2022-03-04 08:08] LABS: Hematocrit 26.8 % (35.3-44.9); Hemoglobin 8.9 g/dL (11.5-15.4); Mean Corpuscular HGB Conc 33.2 g/dL (31.6-35.5); Mean Corpuscular Hemoglobin 31.3 pg (28.0-33.3); Mean Corpuscular Volume 94.4 fL (83.0-100.0); Platelet Count 507 K/mcL (140-400); Red Blood Count 2.84 M/mcL (3.82-4.97); Red Cell Distribution Width 14.2 % (11.5-14.5); White Blood Count 9.4 K/mcL (4.3-11.1)
[2022-03-04 08:21] LABS: Magnesium 2.1 mg/dL (1.6-2.6); Potassium 3.9 mEq/L (3.5-5.1)
[2022-03-04] MEDS: Pantoprazole 40 MG VIAL IVP SCH (09:19)
[2022-03-04] MEDS: metroNIDAZOLE 500 MG TABLET PO SCH ×2 (12:55→20:19)
[2022-03-04] MEDS: *HR* OxyCODONE Immed Rel 5 MG TABLET PO PRN ×3 (12:55→20:19)
[2022-03-04] MEDS: Ondansetron 4 MG/2 ML VIAL IVP PRN (12:55)
[2022-03-04] MEDS ORDERED: Cefepime HCl 2,000 MG in 0.9 % Sodium Chloride 10 ML IVP SCH (13:00)
[2022-03-04] MEDS ORDERED: Acetaminophen 325 MG TABLET PO PRN (15:07)
[2022-03-04] MEDS ORDERED: Albumin 25% 25gram/100mL 25 GM/100 ML IV.SOLN IVPB SCH (16:17)
[2022-03-04 17:03] LABS: Bilirubin,Urine Negative (Negative); Blood,Urine Trace (Negative); Clarity,Urine Clear (Clear); Color,Urine Colorless (Yellow); Glucose,Urine (UA) Normal (Normal); Ketones,Urine Negative (Negative); Leukocyte Esterase,Urine Moderate (Negative); Nitrite,Urine Negative (Negative); PH,Urine 6.5 pH Units (5.0-8.0); Protein,Urine Negative (Neg-Trace); Specific Gravity,Urine 1.008 (1.010-1.025); Squamous Epithelial Cell,Urine Few per hpf (None-Few); Urobilinogen,Urine Normal (Normal); WBC,Urine 15-30 per hpf (0-3)
[2022-03-04 17:09] LABS: Protein/Creatinine Ratio,Urine 0.43 mg/mg (0.00-0.20); Sodium, Urine 77.6 mEq/L
[2022-03-04 19:53] VITALS: BP 155/61; PULSE 77
[2022-03-04 22:39] VITALS: TEMP 98.7; O2SAT 94
[2022-03-05] MEDS ORDERED: BuPROPion XL (24 HR) 150 MG TABLET PO SCH (09:00)
== END 2022-03-04 22:05 | disposition short-term general hospital (02) | DRG 329 ==
LOC: 1NENUOBS → 2NNU 02-22 17:44 → SUATTDRO 02-22 18:43 → 2NENU 03-03 03:35
PROVIDERS: ADMIT Obstetrics & Gynecology; ATTEND Student in an Organized Health Care Education/Training Program
PROC: IRDRAIN (2022-02-22 12:00)